=== PATIENT | male | born 1955 | race Caucasian/White ===

== ENCOUNTER 2023-11-22 14:55 | Emergency (ER) | payer MEDICARE ==
[~2023-11-22] VITALS: Ht 165.1 cm; Wt 54.4 kg
[2023-11-22] VITALS (11 sets, daily range): BP systolic 119–134; BP diastolic 62–94
[2023-11-22] MEDS ORDERED: ONDANSETRON HCl 4 MG/2 ML SDV IV ONE (15:30)
[2023-11-22] MEDS ORDERED: KETOROLAC TROMETHAMINE 30 MG/ML SDV IV ONE (15:30)
[2023-11-22] MEDS ORDERED: MORPHINE SULFATE 4 MG/ML VIAL IV ONE (15:30)
[2023-11-22] MEDS ORDERED: FLEXERIL5 M1 PO (17:05)
[2023-11-22] MEDS ORDERED: NAPROXEN500 MG PO (17:05)
[2023-11-22] MEDS ORDERED: TRAMADOL HYDROC50 M1 PO (17:05)
== END 2023-11-22 17:50 | disposition home or self-care (01) ==
LOC: ED 14:55
DX: M54.2 Cervicalgia (principal); I10 Essential (primary) hypertension

== ENCOUNTER 2024-01-26 12:05 | Emergency (ER) | payer MEDICARE ==
[~2024-01-26] VITALS: Ht 165.1 cm; Wt 72.0 kg
[~2024-01-26 12:05] MED LIST: FLEXERIL5 M1 PO; NAPROXEN500 MG PO; TRAMADOL HYDROC50 M1 PO
[2024-01-26 13:02] VITALS: BP 200/178
[2024-01-26] MEDS ORDERED: KETOROLAC TROMETHAMINE 30 MG/ML SDV IM ONE (13:45)
[2024-01-26] MEDS ORDERED: Acetaminophen 300 MG/Codeine 30 MG/COMBO PO ONE (14:40)
[2024-01-26] MEDS ORDERED: TRAMADOL HCL50 MG PO (14:41)
[2024-01-26 14:58] VITALS: BP 144/93
[2024-01-26 15:00] VITALS: BP 147/98
== END 2024-01-26 15:45 | disposition home or self-care (01) ==
LOC: ED 12:05
DX: M16.11 Unilateral primary osteoarthritis, right hip (principal); M41.9 Scoliosis, unspecified

== ENCOUNTER 2024-03-15 17:30 | Emergency (ER) | payer MEDICARE ==
[~2024-03-15] VITALS: Ht 165.1 cm; Wt 70.0 kg
[2024-03-15] VITALS (8 sets, daily range): BP systolic 100–127; BP diastolic 54–79
[~2024-03-15 17:30] MED LIST changes: +FIORICET PO; +TRAMADOL HCL50 MG PO
[2024-03-15] MEDS ORDERED: METOCLOPRAMIDE HCL 10 MG/2 ML SDV IV ONE (17:35)
[2024-03-15] MEDS ORDERED: KETOROLAC TROMETHAMINE 30 MG/ML SDV IV ONE (17:35)
[2024-03-15] MEDS ORDERED: DiphenhydrAMINE HCL 50 MG/ML SDV IV ONE (17:35)
[2024-03-15 18:41] LABS: BASO% 0.2 % (0-3); EOS% 1.1 % (0-8); HEMOGLOBIN 7.5 g/dl (14.0-18.0); IMMATURE GRANULOCYTES 0.2 % (0.0-5.0); LYMPH% 12.7 % (15-41); MEAN CELL VOLUME 99.6 fL CALC (80.0-100.0); MEAN CORPUSCULAR HGB 32.5 pG CALC (26.0-32.0); MEAN CORPUSCULAR HGB CONC 32.6 g/dL CAL (32.0-36.0); MONO% 11.8 % (2-13); NEUT# 4.03 thou/uL (1.82-7.42); RED BLOOD COUNT 2.31 mill/uL (4.70-6.10); RED CELL DISTRI WIDTH 15.7 % (11.5-15.5)
[2024-03-15 18:53] LABS: BILIRUBIN, TOTAL 0.9 mg/dL (0.2-1.3); CREATININE 0.9 mg/dL (0.7-1.3); POTASSIUM 3.4 mmol/l (3.5-5.1); TOTAL PROTEIN 5.3 g/dL (6.3-8.2)
[2024-03-15] MEDS ORDERED: MORPHINE SULFATE 4 MG/ML VIAL IV ONE (19:35)
[2024-03-15] MEDS ORDERED: ONDANSETRON HCl 4 MG/2 ML SDV IV ONE (19:35)
[2024-03-15] MEDS ORDERED: SODIUM CHLORIDE 0.9% 1,000 ML IV ONE (22:20)
== END 2024-03-15 23:15 | disposition home or self-care (01) ==
LOC: ED 17:30
PROVIDERS: Family Medicine
DX: R51.9 Headache, unspecified (principal); T84.020A Dislocation of internal right hip prosthesis, initial encounter; Y83.1 Surgical operation with implant of artificial internal device as the cause of abnormal reaction of the patient, or of later complication, without mention of misadventure at the time of the procedure; F17.200 Nicotine dependence, unspecified, uncomplicated

== ENCOUNTER 2024-03-21 15:57 | Emergency (ER) | payer MEDICARE ==
[~2024-03-21] VITALS: Ht 165.1 cm; Wt 70.5 kg
[2024-03-21 17:09] LABS: BASO% 0.5 % (0-3); EOS% 2.4 % (0-8); HEMATOCRIT 26.7 % (39.0-50.0); HEMOGLOBIN 8.3 g/dl (14.0-18.0); IMMATURE GRANULOCYTES 0.3 % (0.0-5.0); LYMPH% 26.2 % (15-41); MEAN CELL VOLUME 104.7 fL CALC (80.0-100.0); MEAN CORPUSCULAR HGB 32.5 pG CALC (26.0-32.0); MEAN CORPUSCULAR HGB CONC 31.1 g/dL CAL (32.0-36.0); MONO% 9.4 % (2-13); NEUT# 2.34 thou/uL (1.82-7.42); NEUT% 61.2 % (42-76); RED BLOOD COUNT 2.55 mill/uL (4.70-6.10); RED CELL DISTRI WIDTH 16.4 % (11.5-15.5)
[2024-03-21 17:22] LABS: ALBUMIN 3.4 g/dL (3.2-5.0); BILIRUBIN, TOTAL 0.7 mg/dL (0.2-1.3); CREATININE 0.8 mg/dL (0.7-1.3); POTASSIUM 3.5 mmol/l (3.5-5.1); TOTAL PROTEIN 5.8 g/dL (6.3-8.2)
[2024-03-21] MEDS ORDERED: LASIX20 MG PO (18:54)
[2024-03-21] MEDS ORDERED: FUROSEMIDE 40 MG/TAB PO ONE (18:55)
[2024-03-21 19:05] VITALS: BP 128/81
[2024-03-21 19:18] VITALS: BP 128/81
== END 2024-03-21 19:41 | disposition home or self-care (01) ==
LOC: ED 15:57
PROVIDERS: Family Medicine
DX: R60.0 Localized edema (principal); Z96.641 Presence of right artificial hip joint; Z72.0 Tobacco use